=== PATIENT | male | born 1965 | race Caucasian/White ===

== ENCOUNTER 2024-10-20 18:07 | Emergency (ER) | payer OTHER ==
[~2024-10-20] VITALS: Ht 177.8 cm; Wt 102.1 kg
[2024-10-20 19:10] LABS: BASOPHILS # (AUTO) 0.05 K/uL (0.00-0.20); BASOPHILS % (AUTO) 0.6 % (0.0-5.0); EOSINOPHILS # (AUTO) 0.17 K/uL (0.00-0.70); EOSINOPHILS % (AUTO) 2.1 % (0.0-8.0); HEMATOCRIT 39.5 % (42-54); IMMATURE GRANULOCYTE ABSOLUTE 0.02 K/uL (0-1); LYMPHOCYTES # (AUTO) 1.5 K/uL (1.0-4.8); LYMPHOCYTES % (AUTO) 19.3 % (21.0-51.0); MEAN CORPUSCULAR HEMOGLOBIN 29.9 pg (27.0-33.0); MEAN CORPUSCULAR HGB CONC 32.7 g/dL (32.0-36.0); MEAN CORPUSCULAR VOLUME 91.6 fL (79-99); MONOCYTES # (AUTO) 0.5 K/uL (0.1-1.0); MONOCYTES % (AUTO) 6.5 % (3.0-13.0); NEUTROPHILS # (AUTO) 5.7 K/uL (1.8-7.7); NEUTROPHILS % (AUTO) 71.2 % (40.0-77.0); PLATELET COUNT (AUTO) 183 K/uL (130-400); RED BLOOD CELL COUNT(AUTO) 4.31 MIL/uL (4.50-6.20); RED CELL DISTRIBUTION WIDTH 12.4 % (11.0-15.5)
--- NOTE | 2024-10-20 19:25 | HMCIMG ---
US VENOUS DOPPLER UNILATERAL INDICATION: Swelling. RIGHT lower leg calf pain, swelling TECHNIQUE: US VENOUS DOPPLER UNILATERAL Real-time venous Doppler ultrasound was performed using B mode, color flow and spectral analysis. FINDINGS: The visualized greater saphenous junction, common femoral, deep femoral, superficial femoral, popliteal and posterior tibial veins demonstrate normal compressibility and flow. No DVT is identified. IMPRESSION: No evidence of DVT in the visualized right extremity.
[2024-10-20 19:26] LABS: POTASSIUM 4.2 mmol/L (3.5-5.1)
--- NOTE | 2024-10-20 20:09 | HMCIMG ---
TIBIA/FIBULA 2VWS RT INDICATION: pain TECHNIQUE: TIBIA/FIBULA 2VWS RT. FINDINGS AND IMPRESSION: No displaced fractures identified. Slightly lateral position of the patella which may may be positional versus lateral patellar dislocation. Correlate clinically. There is mild soft tissue swelling. Patellar enthesophyte is seen. Mild degenerative changes are noted. No radiopaque foreign body is identified.
--- NOTE | 2024-10-20 21:03 | ERN ---
ED Note History of Present Illness Stated Complaint: PAIN IN CALF, CANT WALK Chief Complaint: Lower Extremity Pain/Injury Time Seen by MD: 18:27 Time Seen by Midlevel: 18:27 Dictation: The patient is a 59-year-old male with a history of cardiomyopathy, aortic aneurysm who presents to the emergency department with complaints of cramping to the calf onset three weeks ago after jumping rope. Patient reports he was seen about a week ago for this and had a ultrasound to rule out DVTs. Patient reports today he heard a pop in his pain started again. Patient reports pain is in his calf. Denies any injury or falls. Allergies: Coded Allergies: No Known Allergies (Unverified Allergy, Unknown, 10/20/24) Past Medical History Past Medical History: Heart Disease, Hypertension Surgical History: None RN Note Reviewed/Agreed w/PFSH: Yes Review of System Dictation Constitutional: Negative for fever,chills, and weight loss Eyes: Negative for injury, pain,redness, and discharge ENT: Negative for injury,pain or swelling Cardiovascular: Negative for chest pain, palpitations, and edema Respiratory: Negative for shortness of breath, cough, and wheezing, Abdomen/GI: Negative for abdominal pain, nausea, vomiting, diarrhea, and constipation Back: Negative for injury and pain : Negative for injury, bleeding and discharge MS/Extremity: Negative for injury and deformity. Right calf pain Skin: Negative for rash, and discoloration Neuro: Negative for headache, weakness, numbness, tingling, and seizure Psych: Negative for suicide ideation, homicidal ideation, and hallucinations Initial Vital Sign VS Vital Signs Date Time Temp Pulse Resp B/P (MAP) Pulse Ox O2 Delivery O2 Flow Rate FiO2 10/20/24 18:32 97.9 16 60 108/74 95 Room Air 0 Physical Exam Dictation Vital Signs reviewed General Appearance: Alert, oriented x 3, no acute distress, well developed, nourished. Head and Face: non-traumatic. Eyes: PERRL, pink conjunctivas, eyelid no trauma, anterior chamber with arcus senilis. Ears: Pinnas intact and no signs of trauma or erythema ear canals clear and no discharge TM no erythema Nose: No discharge, no bleeding. Oropharynx: Mouth normal, tongue pink. pharynx clear,no erythema, tonsils no exudates, no abscesses noted, mucous membrane moist Neck: Supple, non-tender, no thyromegaly, no masses, no JVD, no bruits Breast:Deferred Chest:No tenderness, no crepitus, no paradoxical movement, no retractions Lungs:Clear, well-ventilated, symmetric, no rales, no wheezing, no rhonchi, no stridor, good breath sounds bilaterally Heart: Regular rate, regular rhythm, no murmur, no gallops Vascular: no peripheral edema, dorsalis pedis 3+ bilaterally. Abdomen: Soft, positive bowel sounds, nondistended, no guarding, nontender, no rebound, no masses no hepatomegaly, no splenomegaly, no Mcgee's sign, no hernias. Rectal: Deferred Genital: Deferred Neurological: Normal speech, motor function intact, sensory function intact Musculoskeletal: Neck nontender, full range of motion, back nontender, full range of motion, Extremities: nontender, full range of motion , limited range of motion to right lower leg due to pain, mild swelling, no open wounds, cap refill less than 2 seconds Skin: Color pink, dry, no turgor, no rash, no lacerations, no abrasions, no contusions. Lymphatic: Deferred Results (Laboratory/Radiology) Laboratory/Radiology Laboratory Tests Test 10/20/24 18:54 White Blood Count 8.0 K/uL (4.8-10.8) Red Blood Count 4.31 MIL/uL (4.50-6.20) L Hemoglobin 12.9 g/dL (14.0-18.0) L Hematocrit 39.5 % (42-54) L Mean Corpuscular Volume 91.6 fL (79-99) Mean Corpuscular Hemoglobin 29.9 pg (27.0-33.0) Mean Corpuscular Hemoglobin Concent 32.7 g/dL (32.0-36.0) Red Cell Distribution Width 12.4 % (11.0-15.5) Platelet Count 183 K/uL (130-400) Mean Platelet Volume 9.6 fL (7.5-10.5) Immature Granulocyte % (Auto) 0.3 % (0-1) Neutrophils (%) (Auto) 71.2 % (40.0-77.0) Lymphocytes (%) (Auto) 19.3 % (21.0-51.0) L Monocytes (%) (Auto) 6.5 % (3.0-13.0) Eosinophils (%) (Auto) 2.1 % (0.0-8.0) Basophils (%) (Auto) 0.6 % (0.0-5.0) Neutrophils # (Auto) 5.7 K/uL (1.8-7.7) Lymphocytes # (Auto) 1.5 K/uL (1.0-4.8) Monocytes # (Auto) 0.5 K/uL (0.1-1.0) Eosinophils # (Auto) 0.17 K/uL (0.00-0.70) Basophils # (Auto) 0.05 K/uL (0.00-0.20) Absolute Immature Granulocyte (auto 0.02 K/uL (0-1) Nucleated Red Blood Cells 0.0 % (0.0-0.19) Sodium Level 140 mmol/L (136-145) Potassium Level 4.2 mmol/L (3.5-5.1) Chloride Level 104 mmol/L (101-111) Carbon Dioxide Level 33 mmol/L (21-32) H Blood Urea Nitrogen 21 mg/dL (7-18) H Creatinine 1.0 mg/dL (0.5-1.3) Glomerular Filtration Rate Calc 87 mL/min (>90) Random Glucose 92 mg/dL (70-105) Total Calcium 8.6 mg/dL (8.5-10.1) Total Creatine Kinase 175 U/L (21-232) REASON: right lower leg calf pain, swelling ORDERING PHYSICIAN: AMILCAR SNIDER PROCEDURE: VENOUS UNI - US VENOUS DOPPLER UNILATERAL US VENOUS DOPPLER UNILATERAL INDICATION: Swelling. RIGHT lower leg calf pain, swelling TECHNIQUE: US VENOUS DOPPLER UNILATERAL Real-time venous Doppler ultrasound was performed using B mode, color flow and spectral analysis. FINDINGS: The visualized greater saphenous junction, common femoral, deep femoral, superficial femoral, popliteal and posterior tibial veins demonstrate normal compressibility and flow. No DVT is identified. IMPRESSION: No evidence of DVT in the visualized right extremity. REASON: pain ORDERING PHYSICIAN: AMILCAR SNIDERP PROCEDURE: TIBFIB RT - TIBIA/FIBULA 2VWS RT TIBIA/FIBULA 2VWS RT INDICATION: pain TECHNIQUE: TIBIA/FIBULA 2VWS RT. FINDINGS AND IMPRESSION: No displaced fractures identified. Slightly lateral position of the patella which may may be positional versus lateral patellar dislocation. Correlate clinically. There is mild soft tissue swelling. Patellar enthesophyte is seen. Mild degenerative changes are noted. No radiopaque foreign body is identified. Labs Reviewed?: Yes ED Course ED Course Orders Procedure Category Date Status Time Cbc With Differential LAB 10/20/24 Complete 18:41 Creatine Kinase, Total LAB 10/20/24 Complete 18:41 Basic Metabolic Panel LAB 10/20/24 Complete 18:41 Tibia/Fibula 2vws Rt RAD 10/20/24 Resulted 18:41 Us Venous Doppler US 10/20/24 Resulted Unilateral 18:41 Ketorolac PHA 10/20/24 Complete Tromethamine 30mg/Ml 19:00 Knee Immobilizer NHUNG 10/20/24 In Process 21:11 Crutches W/Training CPOE 10/20/24 Transmitted (Er) 21:11 Current Medications Medications (Trade) Dose Ordered Sig/Bettina Route PRN Reason Start Time Stop Time Status Last Admin Dose Admin Ketorolac Tromethamine (toRADol) 30 mg ONCE ONCE IM 10/20/24 19:00 10/20/24 19:01 DC Vital Signs Date Time Temp Pulse Resp B/P (MAP) Pulse Ox O2 Delivery O2 Flow Rate FiO2 10/20/24 18:32 97.9 16 60 108/74 95 Room Air 0 Medical Decision Making MDM The patient is a 59-year-old male with a history of cardiomyopathy, aortic aneurysm who presents to the emergency department with complaints of cramping to the calf onset three weeks ago after jumping rope. Patient reports he was seen about a week ago for this and had a ultrasound to rule out DVTs. Patient reports today he heard a pop in his pain started again. Patient reports pain is in his calf. Denies any injury or falls. CBC showed no leukocytosis, mild normocytic anemia, chemistry showed GFR of 83, CK of one hundred seventy-five. Ultrasound revealed no DVT. X-ray showed no acute fractures slightly lateral position of the patella which may be positional versus lateral patellar dislocation. Patient now reports pain is in the casarez. Denies any knee pain. No obvious deformity seen on physical exam to patellar. Patient will be placed in an immobilizer and instructed to follow up with ortho. Differential diagnosis: DVT, rhabdomyolysis, tib-fib fracture Need for hospitalization: Patient does not meet criteria for hospitalization. There are no social concerns with this patient. DX & DISP Disposition: Discharge Departure Impression: Primary Impression: Pain in right lower leg Additional Impression: Right calf pain Condition: Stable Scripts Ibuprofen (Ibuprofen) 600 Mg Tablet 600 MG PO Q6H PRN for PAIN, #15 TAB Prov: AMILCAR SNIDER 10/20/24 Additional Instructions: Please follow up with Orthopedic as soon as possible. If symptoms worsens or anything changes please return to ER. FOLLOW-UP WITH PRIMARY CARE PROVIDER IN 1 TO 2 DAYS. TAKE MEDICATIONS DIRECTED HERE IN THE EMERGENCY ROOM. OKAY TO CONTINUE HOME MEDICATIONS UNLESS OTHERWISE DISCUSSED DURING YOUR VISIT IN THE EMERGENCY ROOM TODAY. RETURN TO YOUR NEAREST EMERGENCY ROOM IF SYMPTOMS WORSEN OR IF THERE IS NO IMPROVEMENT. CALL 911 IF YOU NEED IMMEDIATE ASSISTANCE. TAKE TYLENOL OR MOTRIN [id number] NEEDED AND IF NO CONTRAINDICATIONS ARE PRESENT. INCREASE ORAL HYDRATION. A WOUND CULTURE OR URINE CULTURE WAS ORDERED HERE IN THE EMERGENCY ROOM DEPARTMENT PLEASE FOLLOW-UP WITH PRIMARY CARE PROVIDER AND ADVISE THEM TO GET REPEAT PORTS FROM OUR FACILITY. IF YOU HAD ANY ALEXANDRA WRAP/SPLINTS THAT WERE APPLIED HERE, PLEASE DO NOT REMOVE THEM UNTIL YOU SEE YOUR PRIMARY CARE OR SPECIALTY. Referrals: SAM VINCENT MD Time of Disposition: 21:15 I have reviewed the case, and I agree with, Diagnosis and Plan AMILCAR SNIDER Oct 20, 2024 21:03
[2024-10-20] MEDS ORDERED: IBUP-2070 PO (21:15)
[2024-10-20 21:18] VITALS: BP 132/74; PULSE 75; RESP 20; TEMP 98.6; O2SAT 100
[2024-10-20] MEDS: ketOROlac 30MG VIAL (30MG/ML) IM ONE (21:18)
--- NOTE | 2024-10-20 21:35 | NUR ---
PATIENT DECLINED THE KNEE IMOBILIZER, PER PATIENT HE FEELS BETTER BENDING HIS KNEE. PRICILA MIKE MADE AWARE.
--- NOTE | 2024-10-20 21:37 | NUR ---
RN PROVIDED PAITNET WITH CRUTCHES, ABLE TO USE WITHOUT COMPLICATION
== END 2024-10-20 21:40 | disposition home or self-care (01) ==
LOC: EDH 18:07
DX: M79.661 Pain in right lower leg (principal); I10 Essential (primary) hypertension
CPT/HCPCS: 99285; 93971; 82550; 80048; 85025; 36415; 73590; 96372; J1885